=== PATIENT | female | born 1950 | race Caucasian/White ===

== ENCOUNTER → 2019-08-30 | Outpatient (CLI) | payer MEDICARE, OTHER ==
[~2019-08-30] MED LIST: FLUO20CA19 PO
== END | disposition home or self-care (01) ==
LOC: STAR 08:52
PROVIDERS: ATTEND Obstetrics & Gynecology Female Pelvic Medicine and Reconstructive Surgery
DX: Z01.818 Encounter for other preprocedural examination (principal); N81.2 Incomplete uterovaginal prolapse; R10.2 Pelvic and perineal pain; N39.3 Stress incontinence (female) (male)
CPT/HCPCS: 93005

== ENCOUNTER 2019-09-03 05:40 | Day surgery (SDC) | payer MEDICARE, OTHER ==
[~2019-09-03] VITALS: Ht 167.6 cm; Wt 89.4 kg
[2019-09-03] MEDS ORDERED: LACTATED RINGERS 1,000 ML IV SCH (06:36)
[2019-09-03 06:37] VITALS: BP_SYST 113
[2019-09-03] MEDS ORDERED: BUPIVACAINE/PF-EPI 0.25% 1:200K ONE (06:39)
[2019-09-03] MEDS ORDERED: GENTAMICIN 80 MG/2 ML ONE (06:44)
[2019-09-03] MEDS ORDERED: VANCOMYCIN 1,000 MG ONE (06:44)
[2019-09-03] MEDS ORDERED: LIDOCAINE-MPF 1%, 2ML INFIL ONE (07:00)
[2019-09-03] MEDS ORDERED: CHLORHEXIDINE 15 ML UDC MM ONE (07:00)
[2019-09-03] MEDS ORDERED: FENTANYL PF 250 MCG/5ML ONE (07:21)
[2019-09-03] MEDS ORDERED: MIDAZOLAM 1 MG/ML, 2ML ONE (07:21)
[2019-09-03] MEDS ORDERED: PROMETHAZINE 25 MG/ML, 1ML IVPush PRN (08:00)
[2019-09-03] MEDS ORDERED: FENTANYL PF 100 MCG/2ML IV PRN (08:00)
[2019-09-03] MEDS ORDERED: PROMETHAZINE 25 MG SUPP PR PRN (08:00)
[2019-09-03] MEDS ORDERED: ACETAMINOPHEN 325 MG TABLET PO PRN (08:00)
[2019-09-03] MEDS ORDERED: ONDANSETRON 2MG/ML, 2ML IVPush PRN (08:00)
[2019-09-03] MEDS ORDERED: OXYcodone 5 MG/5 ML ORAL.SOL UDC PO PRN (08:00)
[2019-09-03] MEDS ORDERED: HYDROmorphone 1 MG/ML, 1ML INJ IVPush PRN (08:00)
[2019-09-03] MEDS ORDERED: CEFAZOLIN 1,000 MG ONE (08:07)
[2019-09-03] MEDS ORDERED: KETOROLAC 30 MG/1 ML ONE (08:07)
[2019-09-03] MEDS ORDERED: ROCURONIUM 10MG/ML,5ML ONE (08:07)
[2019-09-03] MEDS ORDERED: PROPOFOL 10 MG/ML, 20ML ONE (08:07)
[2019-09-03] MEDS ORDERED: EPHEDRINE 50 MG/ML, 1ML ONE (08:07)
[2019-09-03] MEDS ORDERED: DEXAMETHASONE 4 MG/ML, 1ML ONE (08:07)
[2019-09-03] MEDS ORDERED: NEOSTIGMINE 1 MG/ML, 10ML ONE (08:07)
[2019-09-03] MEDS ORDERED: ONDANSETRON 2MG/ML, 2ML ONE (08:07)
[2019-09-03] MEDS ORDERED: SUCCINYLCHOLINE 20 MG/ML, 10ML ONE (08:07)
[2019-09-03] MEDS ORDERED: GLYCOPYRROLATE 0.2MG/1ML, 5ML ONE (08:07)
[2019-09-03] MEDS ORDERED: LIDOCAINE-MPF 2% ,5ML ONE (08:14)
== END 2019-09-03 12:10 | disposition home or self-care (01) ==
LOC: OUT 05:40
PROVIDERS: ATTEND Obstetrics & Gynecology Female Pelvic Medicine and Reconstructive Surgery
DX: N81.2 Incomplete uterovaginal prolapse (principal); Z11.59 Encounter for screening for other viral diseases; N39.46 Mixed incontinence; R10.2 Pelvic and perineal pain; F32.9 Major depressive disorder, single episode, unspecified; Z79.899 Other long term (current) drug therapy; Z98.890 Other specified postprocedural states
CPT/HCPCS: 36415; 57265; 57288; 58552; 87635; 88307; C1771; J0330; J0690; J1100; J1580; J1885; J2250; J2405; J2704; J2710; J3010; J3370; J7120